=== PATIENT | female | born 1990 | race African-American/Black ===

== ENCOUNTER → 2018-03-29 | Day surgery (SDC) | payer BC ==
[2018-03-27 14:40] LABS: BASOPHILS % 0.7 % (0.0-1.0); EOSINOPHILS # (AUTO) 0.1 (0.0-0.4); EOSINOPHILS % 2.4 % (0.0-6.0); HEMATOCRIT 36.9 % (34.2-44.1); HEMOGLOBIN 11.4 g/dL (12.0-16.0); LYMPHOCYTES # (AUTO) 2.3 (1.0-3.2); LYMPHOCYTES % 42.8 % (18.0-39.1); MEAN CORPUSCULAR HEMOGLOBIN 25.4 pg (28-32); MEAN CORPUSCULAR HGB CONC 30.9 g/dL (31-35); MEAN CORPUSCULAR VOLUME 82.2 fL (81-99); MONOCYTES # (AUTO) 0.5 (0.2-0.8); MONOCYTES % 9.4 % (4.4-11.3); NEUTROPHILS # (AUTO) 2.4 (2.1-6.9); NEUTROPHILS % 44.5 % (38.7-80.0); PLATELET COUNT 293 x10e3/uL (140-360); RED BLOOD COUNT 4.49 x10e6/uL (3.6-5.1); RED CELL DISTRIBUTION WIDTH 14.2 % (11.7-14.4)
[~2018-03-29] MED LIST: ACETAMINOPHEN 1000 MG/100 ML 100 ML IV ONE; BUPIVACAINE 0.25%/EPI 30ML SDV INJ ONE; DEXAMETHASONE SOD PHOS INJ 4 MG/ML VIAL ONE; FENTANYL CITRATE/PF 100MCG/2 ML INJ ONE; FERRIC SUBSULFATE 20-22% SOLUTION 8ML MC ONE; IODINE/POTASSIUM IODIDE 8 ML SOLUTION TP ONE; KETOROLAC TROMETHAMINE 30 MG/ML VIAL ONE; LIDOCAINE HCL 2% LOCAL INJ 5 ML SDV VIAL INJ ONE; METOCLOPRAMIDE HCL 10 MG/2ML VIAL ONE; MIDAZOLAM HCL 2 MG/2 ML VIAL ONE; ONDANSETRON HCL INJ 2MG/ML 2ML 2 MG/ML VIAL ONE; PROMETHAZINE HCL (IM) 25 MG/ML VIAL ONE; PROPOFOL IV EMULSION 10 MG/ML 20 ML VIAL ONE; SEVOFLURANE INHAL SOLN 250 ML PEN BTL ONE
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
[2018-03-29 15:30] VITALS: BP 129/84
--- NOTE | 2018-03-29 16:30 | Operative Report ---
DATE OF PROCEDURE: PREOPERATIVE DIAGNOSIS: Cervical dysplasia. POSTOPERATIVE DIAGNOSIS: Cervical dysplasia. PROCEDURE: Cone biopsy. COMPLICATIONS: None. ESTIMATED BLOOD LOSS: Minimal. DETAILS: Patient was taken to the OR where general anesthesia was achieved. She was prepped and draped in a sterile fashion. Placed in the dorsal lithotomy position. After examination under anesthesia, a weighted speculum was placed inside the vagina. The cervix was grasped with a single-tooth tenaculum. Two stay sutures at 3 and 9 o'clock of Vicryl 0 were placed on the cervix at 3 and 9 o'clock. The cervix was injected circumferentially with Marcaine with epinephrine 0.25%. A cone biopsy was made with the scalpel and sent to pathology. Cone biopsy bed was cauterized with the Bovie and interrupted pop-off suture of [id number] of Vicryl 0 were placed around the circumference of the cervix. and Surgicel were placed inside the cervical biopsy bed. Hemostasis was found to be adequate. Patient tolerated the procedure well. Lap, sponge and needle counts were correct x2 at the end of the procedure. Job#: [id number] JOSLYN
== END | disposition home or self-care (01) ==
LOC: OR 10:53
PROVIDERS: ATTEND Obstetrics & Gynecology
DX: N87.0 Mild cervical dysplasia (principal); Z01.812 Encounter for preprocedural laboratory examination
CPT/HCPCS: 36415; 57520; 84702; 85025; 88307; 88342; J0131; J1100; J1885; J2001; J2250; J2405; J2550; J2704; J2765; 88304